=== PATIENT | female | born 1985 | race Caucasian/White ===

== ENCOUNTER 2017-06-11 05:43 | Emergency (ER) | payer MEDICAID ==
[~2017-06-11] VITALS: Ht 154.9 cm; Wt 51.0 kg
[2017-06-11 05:51] VITALS: Ht 154.9 cm; Wt 51.0 kg
[2017-06-11 06:06] VITALS: BP 114/81; PULSE 55; RESP 20; TEMP 98.6
== END 2017-06-11 06:34 | disposition left against medical advice (07) ==
LOC: E/R 05:43
DX: Z53.21 Procedure and treatment not carried out due to patient leaving prior to being seen by health care provider (principal)

== ENCOUNTER 2017-07-12 20:56 | Inpatient (IN) | payer MEDICAID ==
[~2017-07-12] VITALS: Ht 172.7 cm; Wt 75.0 kg
[2017-07-12 21:00] VITALS: Ht 172.7 cm; Wt 75.0 kg
[2017-07-12] MEDS ORDERED: ONDANSETRON 4 MG INJ IV STA (22:04)
[2017-07-12] MEDS ORDERED: ACETAMINOPHEN 500 MG TAB PO STA (22:04)
[2017-07-12] MEDS ORDERED: SOD CHLORIDE 0.9% 1,000 ML IV STA (22:04)
[2017-07-12] MEDS ORDERED: KETOROLAC 30 MG INJ IV STA (23:22)
[2017-07-12 23:33] LABS: BASOPHILS % 0.4 % (0.0-2.0); EOSINOPHILS # 0.1 10^3/ul (0.0-0.5); EOSINOPHILS % 0.9 % (0.0-7.0); HEMATOCRIT 24.2 % (37.0-47.0); HEMOGLOBIN 7.6 g/dl (12.0-16.0); LYMPHOCYTES # 3.6 10^3/ul (0.8-2.9); LYMPHOCYTES % 47.3 % (15.0-51.0); MEAN CORPUSCULAR HEMOGLOBIN 19.8 pg (29.0-33.0); MEAN CORPUSCULAR HGB CONC 31.4 g/dl (32.0-37.0); MEAN PLATELET VOLUME 9.8 fl (7.4-10.4); MONOCYTE # 0.5 10^3/ul (0.3-0.9); MONOCYTES % 5.9 % (0.0-11.0); NEUTROPHILS % 45.4 % (39.0-77.0); PLATELET COUNT 367 10^3/UL (140-415); RED BLOOD COUNT 3.84 10^6/ul (4.20-5.40); RED CELL DISTRIBUTION WIDTH 17.5 % (11.5-14.5); WHITE BLOOD COUNT 7.7 10^3/ul (4.8-10.8)
[2017-07-12 23:58] LABS: ADD UMIC YES; UR ASCORBIC ACID NEGATIVE (NEGATIVE); UR BILIRUBIN (Dip) NEGATIVE (NEGATIVE); UR BLOOD (Dip) NEGATIVE (NEGATIVE); UR CLARITY CLEAR (CLEAR); UR COLOR STRAW (YELLOW); UR GLUCOSE (Dip) NEGATIVE (NEGATIVE); UR KETONES (Dip) NEGATIVE (NEGATIVE); UR LEUKOCYTE ESTERASE (Dip) 2+ Leu/ul (NEGATIVE); UR NITRITE (Dip) NEGATIVE (NEGATIVE); UR RBC 1 /HPF (0-5); UR SPECIFIC GRAVITY (Dip) 1.013 (1.003-1.030); UR TOTAL PROTEIN (Dip) NEGATIVE (NEGATIVE); UR UROBILINOGEN (Dip) NEGATIVE (NEGATIVE)
[2017-07-13 00:24] LABS: ALBUMIN 3.9 g/dl (3.3-4.9); ALBUMIN/GLOBULIN RATIO 1.25; CALCIUM 8.8 mg/dl (8.4-10.2); CREATININE 0.65 mg/dl (0.44-1.00); POTASSIUM 4.1 mmol/L (3.5-5.1)
[2017-07-13] MEDS ORDERED: CEFTRIAXONE 1 GM/50 ML (PMX) 50 ML IVPB ONE (03:00)
[2017-07-13 03:22] LABS: RETICULOCYTE COUNT % 1.5 % (0.5-1.5)
[2017-07-13 03:51] LABS: IRON 13 ug/dl (35-150)
[2017-07-13 04:00] LABS: TOTAL IRON BINDING CAPACITY 472 ug/dl (241-421)
[2017-07-13] MEDS ORDERED: ONDANSETRON 4 MG INJ IV PRN ×2 (04:30→07:00)
[2017-07-13] MEDS ORDERED: ACETAMINOPHEN 325 MG TAB PO PRN ×2 (04:30→07:00)
[2017-07-13 04:47] VITALS: PULSE 61; TEMP 98.4
--- NOTE | 2017-07-13 04:51 | ERA ---
ER Documentation Chief Complaint Date/Time DATE: 07/13/17 TIME: 04:48 Chief Complaint DIZZINESS, SYNCOPAL EPISODE AFTER USING RESTROOM. ROS All systems reviewed and are negative except as per history of present illness. Allergies Allergies: Coded Allergies: No Known Allergy (Unverified , 06/11/17) PMhx/Soc History of Surgery: Yes (FIBROIDS) Anesthesia Reaction: No Hx Neurological Disorder: No Hx Respiratory Disorders: No Hx Cardiac Disorders: No Hx Psychiatric Problems: No Hx Miscellaneous Medical Probl: No Hx Alcohol Use: No Hx Substance Use: No Hx Tobacco Use: No Smoking Status: Never smoker Physical Exam Vitals Vital Signs Date Time Temp Pulse Resp B/P Pulse Ox O2 Delivery O2 Flow Rate FiO2 07/13/17 01:58 98.3 60 16 92/67 100 Room Air 07/13/17 00:16 98.0 64 18 110/81 100 Room Air 07/12/17 23:30 98.0 66 18 113/70 98 Room Air 07/12/17 21:00 97.8 66 16 118/75 97 Physical Exam Const: [] Mild distress, appears very tired and uncomfortable. Head: Atraumatic Eyes: Pale conjunctiva, PERRLA ENT: Normal External Ears, Nose and Mouth. Neck: Full range of motion..~ No meningismus. Resp: Clear to auscultation bilaterally Cardio: Regular rate and rhythm, no murmurs Abd: Soft, non tender, non distended. Normal bowel sounds Skin: No petechiae or rashes Back: No midline or flank tenderness Ext: No cyanosis, or edema Neur: Awake and alert Oriented 3, no focal deficits patient is somnolent, cranial nerves II through XII intact, no cerebellar deficits. Psych: Normal Mood and Affect Result Diagram: 07/12/175 07/12/172314 Results 24 hrs Laboratory Tests Test 07/12/17 23:15 07/13/17 03:00 White Blood Count 7.710^3/ul Red Blood Count 3.8410^6/ul Hemoglobin 7.6g/dl Hematocrit 24.2% Mean Corpuscular Volume 63.0fl Mean Corpuscular Hemoglobin 19.8pg Mean Corpuscular Hemoglobin Concent 31.4g/dl Red Cell Distribution Width 17.5% Platelet Count 82504^3/UL Mean Platelet Volume 9.8fl Neutrophils % 45.4% Lymphocytes % 47.3% Monocytes % 5.9% Eosinophils % 0.9% Basophils % 0.4% Nucleated Red Blood Cells % 0.0/100WBC Neutrophils # (Manual) 3.510^3/ul Lymphocytes # 3.610^3/ul Monocytes # 0.510^3/ul Eosinophils # 0.110^3/ul Basophils # 0.010^3/ul Nucleated Red Blood Cells # 0.010^3/ul Urine Color STRAW Urine Clarity CLEAR Urine pH 7.0 Urine Specific [place] 1.013 Urine Ketones NEGATIVEmg/dL Urine Nitrite NEGATIVEmg/dL Urine Bilirubin NEGATIVEmg/dL Urine Urobilinogen NEGATIVEmg/dL Urine Leukocyte Esterase 2+Jamilah/ul Urine Microscopic RBC 1/HPF Urine Microscopic WBC 2/HPF Urine Hemoglobin NEGATIVEmg/dL Urine Glucose NEGATIVEmg/dL Urine Total Protein NEGATIVEmg/dl Sodium Level 139mmol/L Potassium Level 4.1mmol/L Chloride Level 107mmol/L Carbon Dioxide Level 24mmol/L Anion Gap 12 Blood Urea Nitrogen 16mg/dl Creatinine 0.65mg/dl Glucose Level 90mg/dl Calcium Level 8.8mg/dl Total Bilirubin 0.0mg/dl Direct Bilirubin 0.00mg/dl Indirect Bilirubin 0.0mg/dl Aspartate Amino Transf (AST/SGOT) 18IU/L Alanine Aminotransferase (ALT/SGPT) 29IU/L Alkaline Phosphatase 90IU/L Total Protein 7.0g/dl Albumin 3.9g/dl Globulin 3.10g/dl Albumin/Globulin Ratio 1.25 Absolute Reticulocyte Count 0.054X10^6 Percent Reticulocyte Count 1.5% Iron Level 13ug/dl Total Iron Binding Capacity 472ug/dl Percent Iron Saturation 3% SAT Ferritin 3.0ng/ml Current Medications Medications (Trade) Dose Ordered Sig/Jc Route PRN Reason Start Time Stop Time Status Last Admin Dose Admin Sodium Chloride (NS) 1,000 ml @ 1,000 mls/hr Q1H STAT IV 07/12/17 22:04 07/12/17 23:03 DC 07/12/17 22:28 Ondansetron HCl (Zofran Inj) 4 mg ONCE STAT IV 07/12/17 22:04 07/12/17 22:06 DC 07/12/17 22:26 Acetaminophen (Tylenol Tab) 1,000 mg ONCE STAT PO 07/12/17 22:04 07/12/17 22:06 DC 07/12/17 22:26 Ketorolac Tromethamine 30 mg 30 mg ONCE STAT IV 07/12/17 23:22 07/12/17 23:23 DC 07/13/17 00:17 Ceftriaxone Sodium (Rocephin) 50 ml @ 100 mls/hr ONCE ONCE IVPB 07/13/17 03:00 07/13/17 03:29 DC 07/13/17 03:12 Ondansetron HCl (Zofran Inj) 4 mg BRIDGE ORDER PRN IV NAUSEA AND/OR VOMITING 07/13/17 04:30 07/14/17 04:29 Acetaminophen (Tylenol Tab) 650 mg ER BRIDGE PRN PO MILD PAIN/FEVER 07/13/17 04:30 07/14/17 04:29 Procedures/MDM Acute symptomatic anemia and possible urinary tract infection. Patient has no dark stools or any evidence of GI bleeding. She is very symptomatic with her anemia although she has no pain. Suspiciously the reticulocyte count is not elevated. This warrants a further workup for sources of anemia is no GI source is apparent. Patient was given a liter of normal saline transfused 2 units of PRBCs. She also given a gram of Rocephin and urine culture was obtained. Dr. Locke admitting. Departure Diagnosis: Primary Impression: Symptomatic anemia Additional Impressions: UTI (urinary tract infection) Acute weakness Condition: Serious MICHELLEKARON Jul 13, 2017 04:51
[2017-07-13 05:30] VITALS: BP 103/78; RESP 18
[2017-07-13] MEDS ORDERED: NACL 0.9% 3 ML SYG IV SCH (07:00)
[2017-07-13 07:53] VITALS: BP 107/74; RESP 16
--- NOTE | 2017-07-13 08:24 | HP ---
Date/Time of Note Date/Time of Note DATE: 07/13/17 TIME: 08:18 Assessment/Plan VTE Prophylaxis VTE Prophylaxis Intervention: SCD's Assessment/Plan Assessment/Plan 1. Iron deficiency Anemia: 2/2 uterine fibroids - cont blood transfusion - IV Iron - OB consult - will order pelvic/vaginal u/s 2. Generalized weakness/dizziness - see # 1 . HPI/ROS Admit Date/Time Admit Date/Time Jul 13, 2017 at 04:22 Hx of Present Illness This is a 32 yo female with hx of uterine fibroids presented to ER c/o dizziness and generalized weakness. In ER, she was found to be anemic with hgb of 7.6, iron panel consistent with severe iron deficiency. Currently, receiving blood transfusion. Pt denied vaginal bleeding or heavy menses. Also denied hematemesis, dark stool or BRBPR. . . PMH/Family/Social Past Medical History Medical History: other (uterine fibroids) Social History Alcohol Use: none Smoking Status: Never smoker Drug Use: none Exam/Review of Systems Vital Signs Vitals Vital Signs Date Time Temp Pulse Resp B/P Pulse Ox O2 Delivery O2 Flow Rate FiO2 07/13/17 07:53 98.3 57 16 107/74 92 07/13/17 04:47 Room Air Intake and Output 07/12/17 07/12/17 07/13/17 15:00 23:00 07:00 Intake Total 2549 ml Balance 2549 ml Exam Constitutional: alert, oriented, well developed Head: atraumatic, normocephalic Eyes: EOMI, PERRL Respiratory: clear to auscultation, normal air movement Cardiovascular: nl pulses, regular rate and rhythm Gastrointestinal: non-tender, soft Extremities: normal pulses Labs Result Diagram: 07/12/17231407/12/172314 Medications Medications Current Medications Ondansetron HCl (Zofran Inj) 4 mg Q6H PRN IV NAUSEA AND/OR VOMITING; Start 07/13 at 07:00 Acetaminophen 650 mg 650 mg Q6H PRN PO PAIN LEVEL 1-3 OR FEVER; Start 07/13/17 at 07:00 Ferric Sodium Gluconate Complex/ Sodium Chloride (Ferrlecit/NS) 110 ml @ 100 mls/hr Q24H IVPB ; Start 07/13/17 at 08:30; Stop 07/15/17 at 09:35 BRANNON WU MD Jul 13, 2017 08:24
[2017-07-13] MEDS: SOD FERRIC GLUC COMPLX 125 MG in SOD CHLORIDE 0.9% 100 ML IVPB SCH (09:33)
--- NOTE | 2017-07-13 11:13 | PN ---
Date/Time of Note Date/Time of Note DATE: 07/13/17 TIME: 11:11 Assessment/Plan VTE Prophylaxis VTE Prophylaxis Intervention: contraindicated Lines/Catheters IV Catheter Type (from Nrs): Peripheral IV Assessment/Plan Problems: (1) Iron deficiency anemia due to chronic blood loss Status: Chronic Comment: Patient had a syncopal event which brought her to the emergency room. She is being transfused 2 units of blood based on the labs which was ordered before I got here. In addition of the appropriate treatment of Ferrlecit has been ordered. I am going to try and give her an extra dose of that we can get this bad up. She does not need to stay here for the entire duration. She should be plan for discharge planning for tomorrow morning with follow-up to a primary doctor and her correctional program specialist Subjective 24 Hr Interval Summary Free Text/Dictation Patient reports to me that she does not have a regular primary doctor and does not have a correctional program specialist or REGULATORY CONSULTANT. She reports her menstrual cycles are regular and denies any excessive or dysfunctional uterine bleeding. Has no idea why she has an iron deficiency anemia. She denies melena or bright red blood per rectum. She has never been told about iron deficiency however she also has not seen any doctors. Constitutional: no complaints Respiratory: no complaints Cardiovascular: no complaints Gastrointestinal: no complaints Genitourinary: no complaints Exam/Review of Systems Vital Signs Vitals Vital Signs Date Time Temp Pulse Resp B/P Pulse Ox O2 Delivery O2 Flow Rate FiO2 07/13/17 07:53 98.3 57 16 107/74 92 07/13/17 04:47 Room Air Intake and Output 07/12/17 07/12/17 07/13/17 15:00 23:00 07:00 Intake Total 2549 ml Balance 2549 ml Exam Constitutional: alert, oriented Respiratory: clear to auscultation, normal air movement Cardiovascular: nl pulses, regular rate and rhythm Gastrointestinal: nl liver, spleen, non-tender, soft Results Result Diagram: 07/12/178 07/12/172314 Results 24 hrs Laboratory Tests Test 07/12/17 23:15 07/13/17 03:00 White Blood Count 7.7 Red Blood Count 3.84 L Hemoglobin 7.6 L Hematocrit 24.2 L Mean Corpuscular Volume 63.0 L Mean Corpuscular Hemoglobin 19.8 L Mean Corpuscular Hemoglobin Concent 31.4 L Red Cell Distribution Width 17.5 H Platelet Count 367 Mean Platelet Volume 9.8 Neutrophils % 45.4 Lymphocytes % 47.3 Monocytes % 5.9 Eosinophils % 0.9 Basophils % 0.4 Nucleated Red Blood Cells % 0.0 Neutrophils # (Manual) 3.5 Lymphocytes # 3.6 H Monocytes # 0.5 Eosinophils # 0.1 Basophils # 0.0 Nucleated Red Blood Cells # 0.0 Urine Color STRAW Urine Clarity CLEAR Urine pH 7.0 Urine Specific [place] 1.013 Urine Ketones NEGATIVE Urine Nitrite NEGATIVE Urine Bilirubin NEGATIVE Urine Urobilinogen NEGATIVE Urine Leukocyte Esterase 2+ H Urine Microscopic RBC 1 Urine Microscopic WBC 2 Urine Hemoglobin NEGATIVE Urine Glucose NEGATIVE Urine Total Protein NEGATIVE Sodium Level 139 Potassium Level 4.1 Chloride Level 107 Carbon Dioxide Level 24 Anion Gap 12 Blood Urea Nitrogen 16 Creatinine 0.65 Glucose Level 90 Calcium Level 8.8 Total Bilirubin 0.0 L Direct Bilirubin 0.00 Indirect Bilirubin 0.0 Aspartate Amino Transf (AST/SGOT) 18 Alanine Aminotransferase (ALT/SGPT) 29 Alkaline Phosphatase 90 Total Protein 7.0 Albumin 3.9 Globulin 3.10 Albumin/Globulin Ratio 1.25 Absolute Reticulocyte Count 0.054 Percent Reticulocyte Count 1.5 Iron Level 13 L Total Iron Binding Capacity 472 H Percent Iron Saturation 3 L Ferritin 3.0 L Medications Medications Current Medications Ondansetron HCl (Zofran Inj) 4 mg Q6H PRN IV NAUSEA AND/OR VOMITING; Start 07/13 at 07:00 Acetaminophen 650 mg 650 mg Q6H PRN PO PAIN LEVEL 1-3 OR FEVER; Start 07/13/17 at 07:00 Ferric Sodium Gluconate Complex 125 mg/Sodium Chloride 110 ml @ 100 mls/hr Q24H IVPB Last administered on 07/13/17t 09:33; Admin Dose 100 MLS/HR; Start 07/13/17 at 08:30; Stop 07/15/17 at 09:35 Ferric Sodium Gluconate Complex/ Sodium Chloride (Ferrlecit/NS) 110 ml @ 100 mls/hr ONCE ONCE IVPB ; Start 07/13/17 at 18:00; Stop 07/13/17 at 19:05 KARON ONTIVEROS MD Jul 13, 2017 11:13
--- NOTE | 2017-07-13 12:01 | RADRPT ---
PROCEDURE: Pelvic ultrasound. CLINICAL INDICATION: Pelvic pain TECHNIQUE: Gu[place]arrama scale, color doppler, spectral doppler ultrasound of the pelvis was performed with transabdominal and transvaginal transducers. COMPARISON: No prior studies are available for comparison. FINDINGS: Uterus: Position: Anteverted. Normal myometrial echogenicity. Normal appearance of the endometrium. Ovaries: Normal sized ovaries with preserved blood flow. No adnexal masses. A few normal appearing sub-centimeter follicles are seen in each ovary. Free fluid: Trace amount Measurements: Endometrium (cm): 0.4 Uterus (cm): 7.6 x 4.5 x 6.1 Right ovary (cm): 2.9 x 1.6 x 2.8 Left ovary (cm): 3.5 x 1.7 x 3.1 IMPRESSION: No evidence of uterine fibroid. Trace free fluid. Otherwise normal examination. RPTAT: AADD .Ayush Romano MD, MD Date Time Electronically viewed and signed by .Ayush Romano MD, on 07/13/2017 12:01 .B/
[2017-07-13 13:50] VITALS: BP 111/67; RESP 16
[2017-07-13 14:02] LABS: HEMATOCRIT 30.5 % (37.0-47.0); HEMOGLOBIN 9.3 g/dl (12.0-16.0)
[2017-07-13] MEDS ORDERED: SOD FERRIC GLUC COMPLX 125 MG in SOD CHLORIDE 0.9% 100 ML IVPB ONE (18:00)
[2017-07-13 20:30] VITALS: BP 117/70; RESP 18
[2017-07-14 02:39] VITALS: BP 116/72; RESP 16
[2017-07-14 06:28] LABS: BASOPHILS % 0.7 % (0.0-2.0); EOSINOPHILS % 0.7 % (0.0-7.0); HEMATOCRIT 30.8 % (37.0-47.0); HEMOGLOBIN 9.2 g/dl (12.0-16.0); LYMPHOCYTES # 2.3 10^3/ul (0.8-2.9); LYMPHOCYTES % 36.9 % (15.0-51.0); MEAN CORPUSCULAR HEMOGLOBIN 19.7 pg (29.0-33.0); MEAN CORPUSCULAR HGB CONC 29.9 g/dl (32.0-37.0); MEAN CORPUSCULAR VOLUME 66.1 fl (82.0-101.0); MEAN PLATELET VOLUME 9.8 fl (7.4-10.4); MONOCYTE # 0.4 10^3/ul (0.3-0.9); MONOCYTES % 6.8 % (0.0-11.0); NEUTROPHILS % 54.6 % (39.0-77.0); PLATELET COUNT 349 10^3/UL (140-415); RED BLOOD COUNT 4.66 10^6/ul (4.20-5.40); WHITE BLOOD COUNT 6.2 10^3/ul (4.8-10.8)
[2017-07-14 06:46] LABS: ALBUMIN 3.7 g/dl (3.3-4.9); ALBUMIN/GLOBULIN RATIO 1.12; BILIRUBIN,INDIRECT 0.2 mg/dl (0-1.1); BILIRUBIN,TOTAL 0.2 mg/dl (0.2-1.3); CALCIUM 8.6 mg/dl (8.4-10.2); CREATININE 0.58 mg/dl (0.44-1.00); MAGNESIUM 2.1 mg/dl (1.7-2.5); PHOSPHORUS 3.7 mg/dl (2.5-4.9); POTASSIUM 3.9 mmol/L (3.5-5.1)
[2017-07-14 07:41] VITALS: BP 103/59; RESP 20
[2017-07-14] MEDS: SOD FERRIC GLUC COMPLX 125 MG in SOD CHLORIDE 0.9% 100 ML IVPB SCH (08:24)
[2017-07-14] MEDS ORDERED: FER325 PO (10:33)
--- NOTE | 2017-07-14 10:46 | DS ---
Date/Time of Note Date/Time of Note DATE: 07/14/17 TIME: 10:35 Discharge Summary Admission/Discharge Info Admit Date/Time Jul 13, 2017 at 04:22 Discharge Date/Time Discharge Diagnosis 1. Iron deficiency anemia, improves with transfusion, iron supplement, follow up with PCP Patient Condition: Stable Hx of Present Illness This is a 32 yo female with hx of uterine fibroids presented to ER c/o dizziness and generalized weakness. In ER, she was found to be anemic with hgb of 7.6, iron panel consistent with severe iron deficiency. Currently, receiving blood transfusion. Pt denied vaginal bleeding or heavy menses. Also denied hematemesis, dark stool or BRBPR. . . Hospital Course Patient got two units PRBC transfusion. H/H improved to 9.2/30.8. No dizziness today. Work up for etiology of anemia, MCV is 63, reticular cell 1.5%. Fe 13, Sat 3% with ferritin 3% indicates iron deficiency anem ia. Patient got iv iron ans she will be on oral ferrous sulfate. Follow up with PCP. US of pelvis unremarkable. PROCEDURE: Pelvic ultrasound. CLINICAL INDICATION: Pelvic pain TECHNIQUE: [place] scale, color doppler, spectral doppler ultrasound of the pelvis was performed with transabdominal and transvaginal transducers. COMPARISON: No prior studies are available for comparison. FINDINGS: Uterus: Position: Anteverted. Normal myometrial echogenicity. Normal appearance of the endometrium. Ovaries: Normal sized ovaries with preserved blood flow. No adnexal masses. A few normal appearing sub-centimeter follicles are seen in each ovary. Free fluid: Trace amount Measurements: Endometrium (cm): 0.4 Uterus (cm): 7.6 x 4.5 x 6.1 Right ovary (cm): 2.9 x 1.6 x 2.8 Left ovary (cm): 3.5 x 1.7 x 3.1 IMPRESSION: No evidence of uterine fibroid. Trace free fluid. Otherwise normal examination. RPTAT: AADD .Ayush Romano MD, Date Time Electronically viewed and signed by .Ayush Romano MD, on 07/13/2017 12:01 Home Meds Active Scripts Ferrous Sulfate* (Ferrous Sulfate*) 325 Mg Tabec, 325 MG PO BID for 30 Days, TAB Prov:TIFFANY EUBANKS MD 07/14/17 Follow-up Plan PCP in two weeks Primary Care Provider Karli Mc MD Pending Labs Laboratory Tests Test 07/13/17 13:50 07/14/17 05:49 07/14/17 06:43 Hemoglobin 9.3g/dl (12.0-16.0) 9.2g/dl (12.0-16.0) Hematocrit 30.5% (37.0-47.0) 30.8% (37.0-47.0) White Blood Count 6.210^3/ul (4.8-10.8) Red Blood Count 4.6610^6/ul (4.20-5.40) Mean Corpuscular Volume 66.1fl (82.0-101.0) Mean Corpuscular Hemoglobin 19.7pg (29.0-33.0) Mean Corpuscular Hemoglobin Concent 29.9g/dl (32.0-37.0) Red Cell Distribution Width 22.0% (11.5-14.5) Platelet Count 86032^3/UL (140-415) Mean Platelet Volume 9.8fl (7.4-10.4) Neutrophils % 54.6% (39.0-77.0) Lymphocytes % 36.9% (15.0-51.0) Monocytes % 6.8% (0.0-11.0) Eosinophils % 0.7% (0.0-7.0) Basophils % 0.7% (0.0-2.0) Nucleated Red Blood Cells % 0.0/100WBC (0.0-0.0) Neutrophils # (Manual) 3.410^3/ul (1.7-7.5) Lymphocytes # 2.310^3/ul (0.8-2.9) Monocytes # 0.410^3/ul (0.3-0.9) Eosinophils # 0.010^3/ul (0.0-0.5) Basophils # 0.010^3/ul (0.0-0.1) Nucleated Red Blood Cells # 0.010^3/ul (0.0-0.0) Sodium Level 139mmol/L (135-144) Potassium Level 3.9mmol/L (3.5-5.1) Chloride Level 107mmol/L (97-110) Carbon Dioxide Level 24mmol/L (21-31) Anion Gap 12 (8-16) Blood Urea Nitrogen 8mg/dl (7-20) Creatinine 0.58mg/dl (0.44-1.00) Glucose Level 81mg/dl (70-220) Calcium Level 8.6mg/dl (8.4-10.2) Phosphorus Level 3.7mg/dl (2.5-4.9) Magnesium Level 2.1mg/dl (1.7-2.5) Total Bilirubin 0.2mg/dl (0.2-1.3) Direct Bilirubin 0.00mg/dl (0.00-0.20) Indirect Bilirubin 0.2mg/dl (0-1.1) Aspartate Amino Transf (AST/SGOT) 21IU/L (15-46) Alanine Aminotransferase (ALT/SGPT) 25IU/L (13-69) Alkaline Phosphatase 74IU/L (42-121) Total Protein 7.0g/dl (6.1-8.1) Albumin 3.7g/dl (3.3-4.9) Globulin 3.30g/dl (1.3-3.2) Albumin/Globulin Ratio 1.12 Lab Scanned Report BLOOD [id number] TIFFANY EUBANKS MD Jul 14, 2017 10:45
[2017-07-14 13:16] VITALS: BP 96/62; RESP 20
== END 2017-07-14 14:00 | disposition home or self-care (01) | DRG 812 ==
LOC: E/R 20:56 → MS2 07-13 04:22 → E/R 07-13 05:23
PROVIDERS: ADMIT Internal Medicine; ATTEND Internal Medicine
PROC: 30233N1 Transfusion of Nonautologous Red Blood Cells into Peripheral Vein, Percutaneous Approach (ICD-10-PCS; principal; 2017-07-13)
DX: D50.0 Iron deficiency anemia secondary to blood loss (chronic) (principal)
CPT/HCPCS: 36415; 36430; 76830; 76856; 80053; 81001; 82728; 83540; 83735; 84100; 84466; 85014; 85018; 85025; 85045; 86850; 86900; 86901; 86920; 87086; 93005; 96374; 96375; J0696; J1885; J2405; J2916; J7030; P9016

== ENCOUNTER 2019-07-05 16:02 | Inpatient (IN) | payer MEDICAID ==
[~2019-07-05] VITALS: Ht 160 cm; Wt 72.7 kg
[~2019-07-05 16:02] MED LIST: AMOX1TAB9 PO; FER325 PO; LEVE-5 PO
[2019-07-05] MEDS ORDERED: SOD CHLORIDE 0.9% 1,000 ML IV STA (16:04)
[2019-07-05] MEDS ORDERED: LEVETIRACETAM 1000 MG (PMX) 100 ML IVPB STA (16:07)
[2019-07-05] MEDS ORDERED: ACETAMINOPHEN 325 MG TAB PO PRN ×2 (17:30→18:00)
[2019-07-05] MEDS ORDERED: ONDANSETRON 4 MG INJ IV PRN ×2 (17:30→18:00)
[2019-07-05] MEDS ORDERED: SOD CHLORIDE 0.9% 1,000 ML IV SCH (17:47)
[2019-07-05] MEDS ORDERED: NACL 0.9% 3 ML SYG IV SCH (18:00)
[2019-07-05] MEDS ORDERED: LORAZEPAM 2 MG INJ IV PRN ×2 (18:00)
[2019-07-05 20:17] VITALS: Ht 160 cm; Wt 72.7 kg
[2019-07-05 20:30] VITALS: BP 109/71; PULSE 68; RESP 18
[2019-07-06 00:04] VITALS: BP 112/68; PULSE 70; RESP 18
[2019-07-06 03:37] VITALS: BP 98/51; PULSE 67; RESP 16
[2019-07-06 07:39] VITALS: BP 107/56; PULSE 68; RESP 18
[2019-07-06] MEDS: LEVETIRACETAM 500 MG (PMX) 100 ML IVPB SCH ×2 (09:21→20:44)
[2019-07-06 12:29] VITALS: BP 102/62; PULSE 67; RESP 18
[2019-07-06 15:33] VITALS: BP 108/59; PULSE 70; RESP 18
[2019-07-06] MEDS ORDERED: CEFTRIAXONE 1 GM/50 ML (PMX) 50 ML IVPB SCH (17:00)
[2019-07-06 20:15] VITALS: BP 108/70; PULSE 72; RESP 18
[2019-07-07 00:09] VITALS: BP 110/72; PULSE 78; RESP 16
[2019-07-07 04:22] VITALS: BP 102/58; PULSE 57; RESP 16
[2019-07-07 07:20] VITALS: BP 99/63; PULSE 63; RESP 20
[2019-07-07] MEDS: LEVETIRACETAM 500 MG (PMX) 100 ML IVPB SCH (09:47)
[2019-07-07 15:28] VITALS: BP 103/73; PULSE 76; RESP 20
== END 2019-07-07 16:21 | disposition home or self-care (01) | DRG 71 ==
LOC: E/R 16:02 → TEL 17:18
PROVIDERS: ADMIT Internal Medicine; ATTEND Internal Medicine
DX: G93.81 Temporal sclerosis (principal); N39.0 Urinary tract infection, site not specified; D50.9 Iron deficiency anemia, unspecified; J43.9 Emphysema, unspecified; M79.18 Myalgia, other site
CPT/HCPCS: 36415; 70450; 70551; 71045; 71250; 72125; 74176; 76705; 76830; 76856; 80048; 80053; 80061; 80076; 80156; 80164; 80184; 80185; 80307; 81001; 81025; 82550; 82962; 83036; 83735; 84100; 84443; 84484; 84703; 85025; 85610; 85730; 86850; 86900; 86901; 93005; 93306; 95819; J0696; J1953; J7030